=== PATIENT | female | born 1965 | race Caucasian/White ===

== ENCOUNTER 2019-07-01 16:13 | Outpatient (CLI) | payer OTHER, SELFPAY ==
--- NOTE | 2019-07-01 | ECG_ITS ---
Measurements Intervals [place] Rate: 60 P: 60 DE: 122 QRS: 63 QRSD: 92 T: 54 QT: 416 QTc: 419 Interpretive Statements SINUS RHYTHM BASELINE ARTIFACT- II, III, AVF NORMAL ECG Electronically Signed On 07-01-2019 17:17:47 RESIN SHAVER by Travis Hicks D.O.
== END 2019-07-01 16:14 | disposition home or self-care (01) ==
PROVIDERS: PCP Internal Medicine; Visit Provider Orthopaedic Surgery
DX: Z01.818 Encounter for other preprocedural examination (principal); I10 Essential (primary) hypertension; G56.03 Carpal tunnel syndrome, bilateral upper limbs
CPT/HCPCS: 93005